=== PATIENT | male | born 1970 | race Caucasian/White ===

== ENCOUNTER 2024-01-08 20:32 | Emergency (ER) | payer OTHER ==
[~2024-01-08] VITALS: Ht 175.3 cm; Wt 82.7 kg
[2024-01-08 21:00] VITALS: BP 131/77; PULSE 87; RESP 16; TEMP 97.9; O2SAT 97
[2024-01-08] MEDS ORDERED: PRED20TA PO (21:44)
[2024-01-08] MEDS ORDERED: CIPR-208 PO (21:44)
[2024-01-08] MEDS ORDERED: PROM118S5 PO (21:44)
[2024-01-08] MEDS ORDERED: ALBU8HFA INH (21:44)
== END 2024-01-08 22:24 | disposition home or self-care (01) ==
LOC: ER 20:33
DX: J20.9 Acute bronchitis, unspecified (principal); R05.9 Cough, unspecified; Z79.2 Long term (current) use of antibiotics; Z79.899 Other long term (current) drug therapy
CPT/HCPCS: 71045; 99283